=== PATIENT | female | born 1960 | race Caucasian/White ===

== ENCOUNTER 2018-10-24 18:49 | Emergency (ER) | payer BC ==
[~2018-10-24] VITALS: Ht 165.1 cm; Wt 72.7 kg
[~2018-10-24 18:49] MED LIST: MEDROL 4MG DOSPA4 MG PO; ULTRAM 50MG TAB50 MG PO
[2018-10-24 18:54] VITALS: TEMP 98.8
[2018-10-24] MEDS ORDERED: SINGULAIR 110 MG/TAB PO (19:14)
[2018-10-24] MEDS ORDERED: ZYRTEC ALLERGY10 MG PO (19:15)
[2018-10-24] MEDS ORDERED: ESTRACE 1MG1 MG/TAB PO (19:17)
[2018-10-24] MEDS ORDERED: MULTI VITAMINS1 TAB PO (19:17)
[2018-10-24] MEDS ORDERED: ZYPREXA2.5 MG PO (19:19)
[2018-10-24 20:20] VITALS: BP 113/41; PULSE 58
== END 2018-10-24 20:25 | disposition home or self-care (01) ==
LOC: COL.ER 18:49
DX: S00.33XA Contusion of nose, initial encounter (principal); S80.01XA Contusion of right knee, initial encounter; Z90.710 Acquired absence of both cervix and uterus; W01.198A Fall on same level from slipping, tripping and stumbling with subsequent striking against other object, initial encounter; Y92.009 Unspecified place in unspecified non-institutional (private) residence as the place of occurrence of the external cause